=== PATIENT | female | born 1985 | race Caucasian/White ===

== ENCOUNTER 2020-10-04 09:46 | Inpatient (IN) | payer OTHER ==
[2020-10-04] VITALS (20 sets, daily range): BP systolic 106–140; BP diastolic 51–109
[~2020-10-04] VITALS: Ht 180.3 cm; Wt 115.8 kg
[2020-10-04] MEDS ORDERED: MAPA500T2 PO (10:09)
[2020-10-04] MEDS ORDERED: PRENTAB9 PO (10:09)
[2020-10-04] MEDS ORDERED: LR 1,000 ML IV SCH (11:20)
[2020-10-04] MEDS ORDERED: LACTATED RINGER'S 1000 ML IV STA (11:20)
[2020-10-04 11:45] LABS: HEMATOCRIT 36.8 % (36.0-47.0); MEAN CORPUSCULAR HEMOGLOBIN 31.7 pg (27.0-33.0); MEAN CORPUSCULAR HGB CONC 32.6 g/dl (32.0-36.5); MEAN CORPUSCULAR VOLUME 97.4 fl (80.0-96.0); PLATELET COUNT, AUTOMATED 186 10^3/uL (150-450); RED BLOOD COUNT 3.78 10^6/uL (4.00-5.40); WHITE BLOOD COUNT 8.7 10^3/uL (4.0-10.0)
[2020-10-04] MEDS ORDERED: OXYTOCIN DRIP 30 UNITS in IV 1 EA IV SCH (11:48)
[2020-10-04] MEDS ORDERED: OXYTOCIN 30 UNITS IN 0.9% NaCl 500ML IV BAG (J2590) As Ordered ONE (11:50)
[2020-10-04] MEDS ORDERED: FENTANYL 2MCG/ML ROPIVACAINE 0.2% IN 0.9% NACL 100ML IVBAG As Ordered ONE (11:51)
--- NOTE | 2020-10-04 12:48 | HPEPDOC ---
Obstetrical History & Physical General Date of Admission Oct 04, 2020 at 09:46 History of Present Illness Presenting for planned elective induction stating SROM clear with regular contractions starting after being called to present for induction at 0830 @40+3 with hx of prior LGA deliveries. Chief Complaint: Contractions, term, Rupture of membranes Information Provided By: Patient Age: 34 : 6 Term: 3 Pre-term: 0 Abortions: 2 Livin Care Care: Good Care Dating Final EDC: Sep 30, 2020 Final EDC for Daily Update: Sep 30, 2020 Final EDC by: LMP LMP: Dec 25, 2019 EGA at Admission: 40 (+3) Antepartum Course Diagnos(e)s transfer in of care at 24 wks, excessive weight gain in , hx of prior LGA deliveries Height (inches): 71 Pre- weight (lbs.): 176 Admission Weight (lbs.): 232 Change in Weight (lbs.): 56 Past Medical History Past Obstetrical History : Past Obstetrical History: Multigravida Date of Delivery: Oct 04, 2020 (/) Gestation: 40 (all deliveries at 40 wks) Type of Delivery: Spontaneous Vaginal Del. (x3 ) Weight of (grams): 4950 (10#159#710#3) Complications: Yes (CHD) ADMINISTRATIVE LIAISON History: Spontaneous , Theraputic , Abnormal Pap Past Medical History Medical History oral HSV Surgical History: [place] Family History Significant Family History: Cancer (father, PGM, PGF), Hypertension (father) Social History Marital Status: Family situation: Spouse/partner home Psychosocial History: No pertinent psych hx * Smoker: non-smoker Alcohol: Denies Drugs: denies Abuse Violence Screening Have you been hit/kicked/slapp: No Have you been sexually assault: No Imunizations Tdap status: current Influenza Status: needs Allergies Coded Allergies: No Known Allergies (Unverified , 10/04/20) Medications Scheduled No.137/Iron/Folic Acd ( Vitamin Tablet) 1 Each Tablet, 1 TAB PO DAILY Miscellaneous Medications Acetaminophen (Mapap) 500 Mg Tablet, 1,000 MG PO Physical Examination Physical Examination GENERAL: Alert and oriented times three. BREAST: . ABDOMEN: Gravid and non-tender to touch. FETUS: Is vertex (VTX) by sterile vaginal examination (SVE), fetus is vertex (VTX) by Jese. HEART RATE: Regular rate and rhythm. LUNGS: Clear to auscultation (CTA). EXTREMITIES: No edema. No clonus. Laboratory Data 24H LABS Laboratory Tests 2 10/04/20 10:02: Serology Scanned Report Hepatitis B Testing 10/04/20 11:32: Nucleated Red Blood Cells % (auto) 0.0 CBC/BMP Laboratory Tests 10/04/20 11:32 Pertinent Laboratoy Data Blood Type: A+ RBC Antibody Screen: Negative HIV: Negative Hepatitis B: Negative Rapid Plasma Reagin: Nonreactive Rubella: Immune Varicella: Immune Chlamydia/Gonorrhea: Negative Group B Streptococcus: Negative Quad Screen Test: Negative Glucose Tolerance Test: 91 Anatomy Ultrasound Ultrasound Date: Jun 13, 2020 Placenta Location: Fundal Normal Anatomy: Yes Placenta Previa: No Estimated Weight (grams): 785 Other Ultrasounds [id number] 36+1 wks growth u/s measuring 7#5, 3317gm, 90% Steroid Therapy Steroid Therapy: No Vaginal Examination Dilation: 7 cm Effacement: 90% Station: -1 Cervical Consistency: Soft Cervical Position: Posterior Presentation: Cephalic presentation Position: Vertex (occiput) Assessment Heart Rate (FHR): 130 Variability: Moderate Accelerations: Positive Decelerations: None Tocometer Contractions: Yes (q 2-3 min) Frequency: regular Duration: greater than 60 seconds Strength: palpated as strong, resting tone palp/soft Multi-drug resistant Organism: No history of MDRO Assessment/Plan Assessment Shirlene is a 34-year-old (G)6 para (P)3-0-2-3 at 40+3 weeks by LMP, A+, GBS-. Presents to Labor and Delivery (L&D) in active labor with SROM clear at term. Plan Admit and orient. Sub Assembly Team Worker and consent. Diet: clear. Group B Streptococcus (GBS) [negative]. Labs and intravenous (IV) per unit protocol. Counseled on Pitocin and induction of labor (IOL). Lactated Ringers (LR): Bolus 1000 mL, then at 125 mL/hr. Continuous efm x2. Monitor for change in or maternal status. Anticipate [normal spontaneous delivery (). May have epidural as desired. C-S as appropriate. Labor and Delivery Counseling Pt consents for labor and blood products reviewed and confirmed. CARLOS MANUEL CHUNG CNM Oct 04, 2020 12:48
[2020-10-04] MEDS ORDERED: ONDANSETRON 4MG/2ML VIAL IV PRN (13:00)
[2020-10-04] MEDS ORDERED: FENTANYL/ROPIVACAINE/NACL BAG 100 ML EPIDURAL SCH (13:00)
[2020-10-04] MEDS ORDERED: diphenhydrAMINE 50MG/ML VIAL (J1200) IV PRN (13:00)
[2020-10-04] MEDS ORDERED: EPIDURAL/PCA KEYS XX PRN (13:00)
[2020-10-04] MEDS ORDERED: REFRIGERATOR IV KEYS XX PRN (13:00)
[2020-10-04] MEDS ORDERED: ePHEDrine SULFATE 25 MG/5 ML(5MG/ML) SYRINGE IV PRN (13:00)
[2020-10-04] MEDS ORDERED: EPIDURAL COMMENT XX SCH (13:00)
[2020-10-04] MEDS ORDERED: NALOXONE INJ 0.4MG/1ML VIAL (J2310 PER 1MG) IV PRN (13:00)
[2020-10-04] MEDS ORDERED: LACTATED RINGER'S 1000 ML IV PRN (13:00)
[2020-10-04] MEDS ORDERED: fentaNYL 100 MCG/2 ML INJECTION (J3010) As Ordered ONE (13:04)
[2020-10-04] MEDS ORDERED: RHOGAM 300 MCG (1500 IU) INJ (J2790) IM SCH (14:15)
[2020-10-04] MEDS ORDERED: MEASLES,MUMPS,RUBELLA VACCINE INJ (MMR-II) (90707) SC SCH (14:15)
[2020-10-04] MEDS ORDERED: DIBUCAINE 1% OINTMENT 30GM TOP PRN (14:15)
[2020-10-04] MEDS ORDERED: ACETAMINOPHEN TAB 650MG DOSE (2X325MG) PO PRN (14:15)
[2020-10-04] MEDS ORDERED: METHYLERGONOVINE MALEATE 0.2 MG TAB PO PRN (14:15)
--- NOTE | 2020-10-04 15:29 | DNPDOC ---
[facility] Delivery Note Delivery Note DATE OF DELIVERY: 04Oct2020 PREDELIVERY DIAGNOSIS: 40-3/7 weeks' gestation and labor. POST DELIVERY DIAGNOSIS: Delivered. PROCEDURE: Spontaneous vaginal delivery. BLOW MOLD MACHINE OPERATOR: Brenna Chung CNM ANESTHESIA: epidural. ESTIMATED BLOOD LOSS: 150 mL. FINDINGS: 10 pound 3 ounce male , Score 8/9, loose nuchal cord times 1. DELIVERY SUMMARY: Patient is a 34-year-old 6 now para 4-0-2-4 who was admitted to labor and delivery for labor at term on 04Oct2020. Pt progressed to C/C/+1 and made gradual decent with pushing efforts to VD in OA with restitution to LILLIANA. A loose nuchal cord was noted after delivery of the head. The right anterior shoulder delivered followed by the posterior shoulder and corpus. The infant was somersaulted towards the maternal right thigh and the cord reduced. The vigorous male was placed immediately on the maternal abdomen where he was dried and stimulated. Pitocin infusion as initiated per protocol. The cord was clamped x2 after pulsation ceased and cut by the FOB. The placenta delivered spontaneously intact in ladonna presentation with minimal bleeding. The cervix was swept and a small 2cm additional lobe and small membrane were removed followed by several clots. The fundus firmed with massage and bleeding slowed appropriately. A second degree perineal laceration was noted with minimal bleeding. Repair was completed with 3-[address]1 using the Kyle method. A vaginal tag near the laceration was noted. Pt desired removal. A small portion of suture was used to tie off the tag and the tag removed with no bleeding noted. Mother and baby entered the recovery phase in stable condition, with uninterrupted skin to skin, and initiated. BRENNA CHUNG CNM Oct 04, 2020 15:29
[2020-10-04] MEDS: IBUPROFEN 800 MG TAB PO PRN (21:51)
[2020-10-05] MEDS: DOCUSATE SODIUM 100 MG CAP PO PRN (05:16)
[2020-10-05 06:00] VITALS: BP 109/54
--- NOTE | 2020-10-05 07:15 | IPNPDOC ---
Progress Note Date of Service: Oct 05, 2020 Day#: 1 Progress Note SUBJECT: Shirlene is a 34yo s/p , doing well day #1. She has been ambulating, voiding spontaneously without issue and tolerating regular diet. Breast feeding without issue. Reports lochia is decreasing. OBJECTIVE: VITAL SIGNS: Within normal limits, afebrile. Alert and oriented times three. Heart rate: well-perfused Abdomen: Fundus firm at U-2. Soft, NTTP. ASSESSMENT: Shirlene is a 34yo s/p , doing well day #1. Vitals within normal limits, afebrile, hemodynamically stable with no evidence of infection. PLAN: 1. Discharge to home tomorrow. 2. Tylenol and Motrin for pain. 3. Encourage breast feeding and ambulation. 4. Encourage regular diet as tolerated VS, I&O, 24H, Fishbone Vital Signs/I&O Vital Signs Date Time Temp Pulse Resp B/P (MAP) Pulse Ox O2 Delivery O2 Flow Rate FiO2 10/05/20 06:00 97.3 70 18 109/54 (72) 10/04/20 16:30 98 Room Air I&O- Last 24 Hours up to 6 AM 10/05/20 06:00 Intake Total 1100 ml Output Total 950 ml Balance 150 ml Laboratory Data 24H LABS Laboratory Tests 2 10/04/20 10:02: Serology Scanned Report Hepatitis B Testing 10/04/20 11:32: Nucleated Red Blood Cells % (auto) 0.0, Syphilis Serology NONREACTIVE CBC/BMP Laboratory Tests 10/04/20 11:32 BRANDON VASQUEZ DO Oct 05, 2020 07:15
[2020-10-05] MEDS: PRENATAL VITAMINS CHEWABLE TABLET PO SCH (09:00)
[2020-10-05] MEDS: IBUPROFEN 800 MG TAB PO PRN (09:27)
[2020-10-05 18:00] VITALS: BP 114/61
[2020-10-06 06:00] VITALS: BP 95/53
[2020-10-06] MEDS ORDERED: IBUP80TA PO (07:48)
[2020-10-06] MEDS ORDERED: DIBU10OI TOP (07:48)
[2020-10-06] MEDS ORDERED: DOCU100C16 PO (07:48)
[2020-10-06] MEDS: PRENATAL VITAMINS CHEWABLE TABLET PO SCH (10:03)
[2020-10-06] MEDS: DOCUSATE SODIUM 100 MG CAP PO PRN (10:03)
--- NOTE | 2020-10-08 10:49 | DS ---
DATE OF ADMISSION: 10/04/2020 DATE OF DISCHARGE: 10/06/2020 This patient is a 34-year-old 6, now para 4, who was admitted for induction of labor at 40 and 3 weeks of gestation. She did have spontaneous rupture of membranes and some contractions. Had an epidural in place. Delivered a live- male infant, 10 pounds 3 ounces. scores of 8 and 9 at one and five minutes, respectively. She sustained a second-degree perineal laceration, repaired in the usual fashion. Admitting hemoglobin 12.0, hematocrit 36.8, and platelets were 186. Discharge vital signs: Blood pressure 95/53, respirations 16, pulse 62, temperature 97.3. The rest of the examination is unremarkable. She is normocephalic, atraumatic. Neck: Full range of motion. Pupils equal and reactive to light. Distal pulses are symmetric. No evidence of deep venous thrombosis (DVT), pulmonary embolus (PE), or superficial phlebitis. Chest is clear bilaterally to bases. No wheezes or rhonchi. No costovertebral angle (CVA) tenderness. Abdomen is soft. Four-quadrant bowel sounds are noted. Uterus is 2 below. Lochia is moderate. Perineum is healing. No rashes, lesions, or pruritus. No arthralgia or myalgia. No complaint of joint pain. No complaints of cough, wheeze, shortness of breath, or dyspnea on exertion. No nausea, vomiting, diarrhea, or constipation. No urgency or frequency. Patient is concerned about the baby's cardiac murmur. An echo was performed, and vocational aide and track service person will discuss the findings with her this morning. Medications were dispensed at [place]. She has a 6-week checkup at [facility]. All questions were answered. A 20-minute discussion. Patient is discharged pending discussion with the vocational aide. OLGA
== END 2020-10-06 14:10 | disposition home or self-care (01) | DRG 807 ==
LOC: M LDI 09:46 → M OBS 16:00
PROVIDERS: ADMIT Registered Nurse; ATTEND Registered Nurse
PROC: 10E0XZZ Delivery of Products of Conception, External Approach (ICD-10-PCS; principal; 2020-10-04)
PROC: 0KQM0ZZ Repair Perineum Muscle, Open Approach (ICD-10-PCS; 2020-10-04)
PROC: 3E033VJ Introduction of Other Hormone into Peripheral Vein, Percutaneous Approach (ICD-10-PCS; 2020-10-04)
DX: O48.0 Post-term pregnancy (principal); Z37.0 Single live birth; Z3A.40 40 weeks gestation of pregnancy; O69.81X0 Labor and delivery complicated by cord around neck, without compression, not applicable or unspecified; O70.1 Second degree perineal laceration during delivery

== ENCOUNTER → 2022-11-27 | Outpatient (CLI) | payer OTHER ==
[~2022-11-27] MED LIST: DIBU28OI2 TOP; DOCU100C16 PO; IBUP80TA PO; MAPA500T2 PO; PRENTAB9 PO
== END ==
LOC: M WHC 06:57
PROVIDERS: ATTEND Advanced Practice Midwife
DX: Z34.93 Encounter for supervision of normal pregnancy, unspecified, third trimester (principal); Z3A.35 35 weeks gestation of pregnancy

== ENCOUNTER 2022-12-31 02:17 | Inpatient (IN) | payer OTHER ==
[~2022-12-31] VITALS: Ht 180.3 cm; Wt 107.6 kg
[2022-12-31] VITALS (7 sets, daily range): BP systolic 99–117; BP diastolic 56–75
[2022-12-31] MEDS ORDERED: HOME MED LIST COMPLETE! XX SCH (03:10)
[2022-12-31] MEDS ORDERED: METHYLERGONOVINE MALEATE 0.2MG/ML 1ML VIAL IM PRN ×2 (03:10→04:50)
[2022-12-31] MEDS ORDERED: OXYTOCIN DRIP 30 UNITS in IV 1 EA IV PRN ×4 (03:10)
[2022-12-31] MEDS ORDERED: TRANEXAMIC ACID INJection 1,000 MG in NS 100 ML IV PRN (03:10)
[2022-12-31] MEDS ORDERED: PENICILLIN G POTASSIUM 5 MU IV 5 MU in D5W MINI-BAG PLUS 100 ML IV STA (03:10)
[2022-12-31] MEDS ORDERED: LIDOCAINE 1% MDV 20ML VIAL INFIL PRN (03:10)
[2022-12-31] MEDS ORDERED: LACTATED RINGER'S 1000 ML IV STA (03:10)
[2022-12-31] MEDS ORDERED: LR 1,000 ML IV SCH ×2 (03:10→04:50)
[2022-12-31] MEDS ORDERED: PRENTAB9 PO (03:11)
[2022-12-31 03:36] LABS: HEMATOCRIT 33.1 % (36.0-47.0); HEMOGLOBIN 11.3 g/dl (12.0-15.5); MEAN CORPUSCULAR HEMOGLOBIN 32.2 pg (27.0-33.0); MEAN CORPUSCULAR HGB CONC 34.1 g/dl (32.0-36.5); MEAN CORPUSCULAR VOLUME 94.3 fl (80.0-96.0); PLATELET COUNT, AUTOMATED 185 10^3/uL (150-450); RED BLOOD COUNT 3.51 10^6/uL (4.00-5.40); WHITE BLOOD COUNT 8.1 10^3/uL (4.0-10.0)
[2022-12-31 04:09] LABS: CORD GAS ABE A -6.6; CORD GAS HCO3 A 22.8 MEQ/L; CORD GAS HCO3 V 22.5 MEQ/L; CORD GAS O2 SAT A 69.6 %; CORD GAS PCO2 V 37.7 mmHg; CORD GAS PH A 7.191 UNITS; CORD GAS PH V 7.394 UNITS; CORD GAS PO2 A 36.3 mmHg; CORD GAS PO2 V 51.7 mmHg; CORD GAS SBC A 18.5 MEQ/L; CORD GAS SBC V 22.7 MEQ/L; CORD GAS TCO2 A 24.7 MEQ/L; CORD GAS TCO2 V 23.7 MEQ/L
[2022-12-31] MEDS ORDERED: ONDANSETRON 4MG 2ML VIAL IV PRN (04:50)
[2022-12-31] MEDS ORDERED: DIBUCAINE 1% OINTMENT 30GM TOP PRN (04:50)
[2022-12-31] MEDS ORDERED: RHOGAM 300MCG (1500IU) INJ IM SCH (04:50)
[2022-12-31] MEDS ORDERED: OXYTOCIN DRIP 30 UNITS in IV 1 EA IV SCH (04:50)
[2022-12-31] MEDS ORDERED: METOCLOPRAMIDE INJ 10MG/2ML VIAL IV PRN (04:50)
[2022-12-31] MEDS: IBUPROFEN 800 MG TAB PO SCH ×3 (05:30→22:29)
[2022-12-31] MEDS: ACETAMINOPHEN 500 MG TAB PO SCH ×3 (06:00→17:41)
[2022-12-31] MEDS ORDERED: PEN G POT 3,000,000 UNIT/50 ML 3,000,000 UNIT in IV 1 EA IV SCH (08:00)
[2022-12-31] MEDS ORDERED: PRENATAL VITAMINS CHEWABLE TABLET PO SCH (09:00)
[2022-12-31] MEDS: PRENATAL VITAMINS CHEWABLE TABLET PO SCH (11:02)
[2022-12-31] MEDS: DOCUSATE SODIUM 100MG CAPSULE PO PRN (17:40)
[2023-01-01] MEDS: IBUPROFEN 800 MG TAB PO SCH ×2 (06:00→14:00)
[2023-01-01] MEDS: ACETAMINOPHEN 500 MG TAB PO SCH ×3 (06:00→12:45)
[2023-01-01] MEDS: DOCUSATE SODIUM 100MG CAPSULE PO PRN (08:47)
[2023-01-01] MEDS: PRENATAL VITAMINS CHEWABLE TABLET PO SCH (08:47)
[2023-01-02] MEDS ORDERED: MEASLES,MUMPS,RUBELLA VACCINE INJ (MMR-II) SC.IMMUN ONE (09:00)
== END 2023-01-01 15:45 | disposition home or self-care (01) | DRG 807 ==
LOC: M LDO 02:17 → M LDI 02:40 → M OBS 07:29
PROVIDERS: ADMIT Obstetrics & Gynecology; ATTEND Obstetrics & Gynecology
PROC: 10E0XZZ Delivery of Products of Conception, External Approach (ICD-10-PCS; principal; 2022-12-31)
PROC: 0KQM0ZZ Repair Perineum Muscle, Open Approach (ICD-10-PCS; 2022-12-31)
DX: O70.1 Second degree perineal laceration during delivery (principal); Z37.0 Single live birth; Z3A.39 39 weeks gestation of pregnancy; O99.824 Streptococcus B carrier state complicating childbirth